=== PATIENT | female | born 1965 | race Caucasian/White ===

== ENCOUNTER → 2020-04-12 12:49 | Outpatient (CLI) | payer OTHER, SELFPAY ==
--- NOTE | ~2020-04-12 | US_ITS ---
US renal BI 04/12/2020 13:02 Procedure: Realtime transabdominal ultrasound of the kidneys and bladder. Indication: Elevated creatinine Comparison: No prior studies for comparison. Findings: Renal echotexture is normal bilaterally without hydronephrosis, contour deforming mass or r enal calculus. The right kidney measures 7.7 cm and left kidney measures 8.7 cm. Bladder within norm al limits. Impression: 1: Unremarkable renal ultrasound. No stones, masses or hydronephrosis. Reviewed, dictated and finalized at location A. [employer] Impression: 1: Unremarkable renal ultrasound. No stones, masses or hydronephrosis.
== END ==
PROVIDERS: PCP Internal Medicine; Visit Provider Internal Medicine
DX: R79.89 Other specified abnormal findings of blood chemistry (principal)
CPT/HCPCS: 76775